=== PATIENT | female | born 1970 | race Two or more races ===

== ENCOUNTER 2019-03-26 15:10 | Outpatient (CLI) | payer OTHER | END 2019-03-26 15:17 | disposition home or self-care (01) | LOC: MAMO-SONO 15:10 | DX: N60.11 Diffuse cystic mastopathy of right breast (principal); N60.12 Diffuse cystic mastopathy of left breast ==

== ENCOUNTER 2019-04-28 07:17 | Outpatient (CLI) | payer OTHER | END 2019-04-28 07:28 | disposition home or self-care (01) | LOC: SONOGRAMA 07:17 | DX: N60.11 Diffuse cystic mastopathy of right breast (principal) ==

== ENCOUNTER → 2020-10-25 | Outpatient (CLI) | payer OTHER | END | disposition home or self-care (01) | LOC: MAMO-SONO 13:35 | PROVIDERS: ATTEND Obstetrics & Gynecology | DX: N60.11 Diffuse cystic mastopathy of right breast (principal) ==

== ENCOUNTER 2021-10-30 07:49 | Outpatient (CLI) | payer OTHER | END 2021-10-30 08:03 | disposition home or self-care (01) | LOC: MAMO-SONO 07:49 | PROVIDERS: ATTEND Obstetrics & Gynecology | DX: N60.11 Diffuse cystic mastopathy of right breast (principal) ==

== ENCOUNTER 2023-05-14 13:40 | Outpatient (CLI) | payer OTHER | END 2023-05-14 14:41 | disposition home or self-care (01) | LOC: MAMO-SONO 13:40 | PROVIDERS: ATTEND Obstetrics & Gynecology | DX: N60.11 Diffuse cystic mastopathy of right breast (principal); Z12.31 Encounter for screening mammogram for malignant neoplasm of breast ==